=== PATIENT | female | born 2000 | race Hispanic/Latino ===

== ENCOUNTER 2018-01-01 00:45 | Emergency (ER) | payer SELFPAY ==
[2018-01-01] MEDS ORDERED: Lidocaine 1% PF 5 ML VIAL ONE (00:57)
[2018-01-01] MEDS ORDERED: cefTRIAXone\\ROCEPHIN 250 MG VIAL ONE (00:57)
== END 2018-01-01 01:18 | disposition home or self-care (01) ==
LOC: SCSER 00:45
DX: N72 Inflammatory disease of cervix uteri (principal)
CPT/HCPCS: 96372; J0696; J2001

== ENCOUNTER 2018-01-05 21:49 | Emergency (ER) | payer SELFPAY | END 2018-01-05 22:07 | disposition home or self-care (01) | LOC: SCSER 21:49 | DX: R11.10 Vomiting, unspecified (principal); T36.95XA Adverse effect of unspecified systemic antibiotic, initial encounter | CPT/HCPCS: 99283 ==

== ENCOUNTER 2018-11-29 02:05 | Emergency (ER) | payer SELFPAY ==
[2018-11-29] MEDS ORDERED: Ibuprofen 600 MG TAB ONE (02:18)
== END 2018-11-29 02:21 | disposition home or self-care (01) ==
LOC: SCSER 02:05
DX: H92.01 Otalgia, right ear (principal)
CPT/HCPCS: 99282

== ENCOUNTER 2025-04-09 01:02 | Emergency (ER) | payer SELFPAY ==
[2025-04-09 01:50] LABS: #Basophils 0.06 10x3/uL (0.0-0.2); #Eosinophils 0.20 10x3/uL (0.0-0.7); #Monocytes 0.69 10x3/uL (0.11-0.59); #Neutrophils 4.98 10x3/uL (1.40-6.50); %Basophils 0.6 % (0.0-1.0); %Eosinophils 1.9 % (0.0-10.0); %Lymphocytes 42.3 % (21.0-51.0); %Monocytes 6.7 % (0.0-10.0); %Neutrophils 48.1 % (42.0-75.0); Hematocrit 45.3 % (36.0-47.0); Hemoglobin 15.2 g/dL (12.0-16.0); Mean Corpuscular Hemoglobin 29.1 pg (27.0-31.0); Mean Corpuscular Volume 86.6 fL (78.0-98.0); Platelet Count 328 10x3/uL (130-400); Red Blood Cell (RBC) Count 5.23 mill/uL (4.20-5.40); White Blood Cell (WBC) Count 10.35 10x3/uL (4.8-10.8)
[2025-04-09 02:23] LABS: ALT (SGPT) 62 U/L (Less than 34); AST (SGOT) 29 U/L (11-34); Albumin 4.5 g/dL (3.1-4.5); Alkaline Phosphatase 79 U/L (40-110); Anion Gap 17 mmol/L (10-20); BUN (Urea Nitrogen) 13 mg/dL (7.0-18.7); Bilirubin, Total 0.4 mg/dL (0.3-1.2); Calc. Creatinine Clearance 0 mL/min (70-130); Calcium 9.6 mg/dL (7.8-10.44); Carbon Dioxide 21 mmol/L (22-29); Chloride 106 mmol/L (98-107); Globulin 3.3 g/dL (2.4-3.5); Glucose 99 mg/dL (70-105); Potassium 3.9 mmol/L (3.5-5.1); Sodium 140 mmol/L (136-145)
[2025-04-09] MEDS ORDERED: Ondansetron PF 4 MG/2 ML Vial ONE (06:40)
== END 2025-04-09 04:39 | disposition home or self-care (01) ==
LOC: ERS 01:02
DX: R00.2 Palpitations (principal)
CPT/HCPCS: 36415; 71045; 80053; 84484; 85025; 93005